=== PATIENT | female | born 1955 | race Caucasian/White ===

== ENCOUNTER 2022-05-12 14:50 | Inpatient (IN) | payer MEDICARE ==
[2022-05-12 20:05] VITALS: BMI 31.4
[2022-05-12] MEDS ORDERED: Ondansetron PF 4 MG/2 ML Vial IVP PRN (20:53)
[2022-05-12] MEDS ORDERED: Dextrose 5% in Water 1,000 ML IV PRN (20:59)
[2022-05-12] MEDS ORDERED: Dextrose 50% Abboject 50 ML SYRINGE SLOW IVP PRN (20:59)
[2022-05-12] MEDS ORDERED: Potassium Chloride 20 MEQ TAB PO SCH (21:00)
[2022-05-12 21:48] LABS: Troponin I 0.037 ng/mL (< 0.028)
[2022-05-12] MEDS: Heparin 5,000 UNITS/ML VIAL SC SCH (22:29)
[2022-05-12] MEDS: Acetaminophen 325 MG TAB PO PRN (22:29)
[2022-05-12] MEDS: Sodium Chloride 0.9% 1,000 ML IV SCH (22:30)
[2022-05-12] MEDS: HumaLOG 300 UNITS/3 ML VIAL SC PRN (22:36)
[2022-05-13 00:36] LABS: Troponin I 0.043 ng/mL (< 0.028)
[2022-05-13 05:37] LABS: #Lymphocytes 1.3 thou/uL (1.20-3.40); #Monocytes 1.4 thou/uL (0.11-0.59); #Neutrophils 13.4 thou/uL (1.40-6.50); %Basophils 0.1 % (0.0-1.0); %Lymphocytes 8.3 % (21.0-51.0); %Monocytes 8.9 % (0.0-10.0); %Neutrophils 82.7 % (42.0-75.0); Hemoglobin 10.4 g/dL (12.0-16.0); Mean Corpuscular HGB CONC 32.5 g/dL (32.0-36.0); Mean Corpuscular Hemoglobin 29.9 pg (27.0-31.0); Mean Platelet Volume 7.1 fL (7.4-10.4); Platelet Count 259 thou/uL (130-400); RBC Distribution Width 12.9 % (11.5-14.5); Red Blood Cell (RBC) Count 3.48 mill/uL (4.20-5.40); White Blood Cell (WBC) Count 16.2 thou/uL (4.8-10.8)
[2022-05-13 05:51] LABS: Hemoglobin A1c 8.3 % (4.0-6.0)
[2022-05-13 06:01] LABS: Anion Gap 16 mmol/L (10-20); BUN (Urea Nitrogen) 34 mg/dL (9.8-20.1); Calc. Creatinine Clearance 46 mL/min (70-130); Calcium 8.8 mg/dL (7.8-10.44); Carbon Dioxide 24 mmol/L (23-31); Cardiac Risk 4.5 (Less than 4.5); Chloride 99 mmol/L (98-107); Cholesterol 156 mg/dl (< 200 Desired); Estimated GFR 41; Glucose 286 mg/dL (80-115); HDL Cholesterol 35 mg/dL (>60 Neg Risk); LDL Cholesterol, Calculated 67 mg/dL; Magnesium 1.5 mg/dL (1.6-2.6); Potassium 3.2 mmol/L (3.5-5.1); Sodium 136 mmol/L (136-145); Triglycerides 272 mg/dL (Less than 150)
[2022-05-13] MEDS: HumaLOG 300 UNITS/3 ML VIAL SC PRN ×4 (06:35→21:23)
[2022-05-13] MEDS: Heparin 5,000 UNITS/ML VIAL SC SCH ×2 (08:59→21:23)
[2022-05-13] MEDS ORDERED: Potassium Chloride 20 MEQ TAB PO SCH (09:00)
[2022-05-13] MEDS ORDERED: Magnesium 2 GM/50 ML(in water) 2 GM in Premix Bag 1 BAG IVPB SCH (09:00)
[2022-05-13] MEDS: Aspirin 325 MG TAB PO SCH (10:27)
[2022-05-13] MEDS: Sodium Chloride 0.9% 1,000 ML IV SCH ×2 (10:28→23:54)
[2022-05-13] MEDS ORDERED: cefTRIAXone\\ROCEPHIN 1 GM in Sodium Chloride 0.9% 100 ML IVPB SCH (16:00)
[2022-05-13] MEDS: cefTRIAXone\\ROCEPHIN 2 GM in Sodium Chloride 0.9% 100 ML IVPB SCH (17:14)
[2022-05-13] MEDS ORDERED: Atorvastatin Calcium 40 MG TAB PO SCH (21:00)
[2022-05-13] MEDS: Insulin Glargine 30 UNITS/0.3 ML VIAL SC SCH (21:23)
[2022-05-13] MEDS: Rosuvastatin 20 MG TAB PO SCH (21:23)
[2022-05-13] MEDS: Acetaminophen 325 MG TAB PO PRN (23:51)
[2022-05-14 05:08] LABS: #Lymphocytes 2.2 thou/uL (1.20-3.40); #Monocytes 1.1 thou/uL (0.11-0.59); %Basophils 0.3 % (0.0-1.0); %Eosinophils 0.4 % (0.0-10.0); %Lymphocytes 20.9 % (21.0-51.0); %Monocytes 11.1 % (0.0-10.0); %Neutrophils 67.3 % (42.0-75.0); Hemoglobin 10.7 g/dL (12.0-16.0); Mean Corpuscular HGB CONC 33.9 g/dL (32.0-36.0); Mean Corpuscular Volume 91.5 fL (78.0-98.0); Mean Platelet Volume 7.3 fL (7.4-10.4); Platelet Count 234 thou/uL (130-400); RBC Distribution Width 12.8 % (11.5-14.5); Red Blood Cell (RBC) Count 3.46 mill/uL (4.20-5.40); White Blood Cell (WBC) Count 10.3 thou/uL (4.8-10.8)
[2022-05-14 05:30] LABS: Anion Gap 14 mmol/L (10-20); BUN (Urea Nitrogen) 29 mg/dL (9.8-20.1); Calc. Creatinine Clearance 54 mL/min (70-130); Calcium 8.2 mg/dL (7.8-10.44); Carbon Dioxide 21 mmol/L (23-31); Chloride 104 mmol/L (98-107); Estimated GFR 49; Glucose 206 mg/dL (80-115); Potassium 3.1 mmol/L (3.5-5.1); Sodium 136 mmol/L (136-145)
[2022-05-14] MEDS: Heparin 5,000 UNITS/ML VIAL SC SCH ×2 (09:45→21:29)
[2022-05-14] MEDS: Aspirin 325 MG TAB PO SCH (09:45)
[2022-05-14] MEDS: HumaLOG 300 UNITS/3 ML VIAL SC PRN ×3 (11:36→21:32)
[2022-05-14] MEDS: Sodium Chloride 0.9% 1,000 ML IV SCH ×2 (15:36→15:56)
[2022-05-14] MEDS: cefTRIAXone\\ROCEPHIN 2 GM in Sodium Chloride 0.9% 100 ML IVPB SCH (15:55)
[2022-05-14] MEDS: Insulin Glargine 30 UNITS/0.3 ML VIAL SC SCH (21:30)
[2022-05-14] MEDS: Rosuvastatin 20 MG TAB PO SCH (21:32)
[2022-05-14] MEDS: Acetaminophen 325 MG TAB PO PRN (21:32)
[2022-05-15 05:06] LABS: #Eosinphils 0.1 thou/uL (0.0-0.7); #Lymphocytes 2.5 thou/uL (1.20-3.40); #Monocytes 1.4 thou/uL (0.11-0.59); #Neutrophils 6.5 thou/uL (1.40-6.50); %Basophils 0.2 % (0.0-1.0); %Eosinophils 1.1 % (0.0-10.0); %Lymphocytes 23.5 % (21.0-51.0); %Monocytes 12.9 % (0.0-10.0); %Neutrophils 62.3 % (42.0-75.0); Hemoglobin 11.1 g/dL (12.0-16.0); Mean Corpuscular HGB CONC 34.8 g/dL (32.0-36.0); Mean Platelet Volume 7.4 fL (7.4-10.4); Platelet Count 244 thou/uL (130-400); RBC Distribution Width 12.6 % (11.5-14.5); Red Blood Cell (RBC) Count 3.48 mill/uL (4.20-5.40); White Blood Cell (WBC) Count 10.5 thou/uL (4.8-10.8)
[2022-05-15 05:20] LABS: Anion Gap 14 mmol/L (10-20); BUN (Urea Nitrogen) 22 mg/dL (9.8-20.1); Calc. Creatinine Clearance 66 mL/min (70-130); Calcium 8.2 mg/dL (7.8-10.44); Carbon Dioxide 22 mmol/L (23-31); Chloride 104 mmol/L (98-107); Estimated GFR 63; Glucose 190 mg/dL (80-115); Potassium 3.2 mmol/L (3.5-5.1); Sodium 137 mmol/L (136-145)
[2022-05-15] MEDS: Sodium Chloride 0.9% 1,000 ML IV SCH ×2 (06:10→20:44)
[2022-05-15] MEDS: HumaLOG 300 UNITS/3 ML VIAL SC PRN ×3 (06:13→16:23)
[2022-05-15] MEDS: Aspirin 325 MG TAB PO SCH (09:04)
[2022-05-15] MEDS: Heparin 5,000 UNITS/ML VIAL SC SCH ×2 (09:04→20:48)
[2022-05-15] MEDS: cefTRIAXone\\ROCEPHIN 2 GM in Sodium Chloride 0.9% 100 ML IVPB SCH (16:22)
[2022-05-15] MEDS ORDERED: Potassium Chloride 20 MEQ TAB PO SCH (20:15)
[2022-05-15] MEDS: Rosuvastatin 20 MG TAB PO SCH (20:46)
[2022-05-15] MEDS: Insulin Glargine 30 UNITS/0.3 ML VIAL SC SCH (20:54)
[2022-05-16] MEDS: HumaLOG 300 UNITS/3 ML VIAL SC PRN ×4 (06:18→21:00)
[2022-05-16 07:47] LABS: #Eosinphils 0.2 thou/uL (0.0-0.7); #Lymphocytes 2.3 thou/uL (1.20-3.40); %Basophils 0.2 % (0.0-1.0); %Eosinophils 2.1 % (0.0-10.0); %Lymphocytes 21.9 % (21.0-51.0); %Monocytes 9.2 % (0.0-10.0); %Neutrophils 66.5 % (42.0-75.0); Hemoglobin 9.8 g/dL (12.0-16.0); Mean Corpuscular HGB CONC 32.6 g/dL (32.0-36.0); Mean Corpuscular Hemoglobin 29.7 pg (27.0-31.0); Mean Corpuscular Volume 91.1 fL (78.0-98.0); Mean Platelet Volume 7.1 fL (7.4-10.4); Platelet Count 265 thou/uL (130-400); RBC Distribution Width 12.8 % (11.5-14.5); White Blood Cell (WBC) Count 10.5 thou/uL (4.8-10.8)
[2022-05-16 08:09] LABS: Anion Gap 9 mmol/L (10-20); BUN (Urea Nitrogen) 16 mg/dL (9.8-20.1); Calc. Creatinine Clearance 77 mL/min (70-130); Calcium 8.1 mg/dL (7.8-10.44); Carbon Dioxide 24 mmol/L (23-31); Chloride 108 mmol/L (98-107); Estimated GFR 75; Glucose 164 mg/dL (80-115); Potassium 3.2 mmol/L (3.5-5.1); Sodium 138 mmol/L (136-145)
[2022-05-16] MEDS: Sodium Chloride 0.9% 1,000 ML IV SCH (08:16)
[2022-05-16] MEDS: Heparin 5,000 UNITS/ML VIAL SC SCH ×2 (08:17→21:01)
[2022-05-16] MEDS: Aspirin 325 MG TAB PO SCH (08:17)
[2022-05-16] MEDS: cefTRIAXone\\ROCEPHIN 2 GM in Sodium Chloride 0.9% 100 ML IVPB SCH (16:33)
[2022-05-16] MEDS ORDERED: Saccharomyces boulardii 250 MG CAP PO SCH (17:15)
[2022-05-16] MEDS: Rosuvastatin 20 MG TAB PO SCH (20:59)
[2022-05-16] MEDS: Insulin Glargine 30 UNITS/0.3 ML VIAL SC SCH (20:59)
[2022-05-17] MEDS: Acetaminophen 325 MG TAB PO PRN (00:21)
[2022-05-17] MEDS: HumaLOG 300 UNITS/3 ML VIAL SC PRN ×3 (05:53→16:40)
[2022-05-17 05:59] LABS: Anion Gap 12 mmol/L (10-20); BUN (Urea Nitrogen) 13 mg/dL (9.8-20.1); Calc. Creatinine Clearance 72 mL/min (70-130); Calcium 8.2 mg/dL (7.8-10.44); Carbon Dioxide 23 mmol/L (23-31); Chloride 106 mmol/L (98-107); Estimated GFR 70; Glucose 231 mg/dL (80-115); Potassium 3.1 mmol/L (3.5-5.1); Sodium 138 mmol/L (136-145)
[2022-05-17] MEDS: Potassium Chloride 20 MEQ TAB PO SCH ×2 (09:15→16:39)
[2022-05-17] MEDS: Heparin 5,000 UNITS/ML VIAL SC SCH ×2 (09:16→21:32)
[2022-05-17] MEDS: Aspirin 325 MG TAB PO SCH (09:16)
[2022-05-17] MEDS: Saccharomyces boulardii 250 MG CAP PO SCH (09:16)
[2022-05-17] MEDS: metFORMIN 500 MG TAB PO SCH (16:39)
[2022-05-17] MEDS: cefTRIAXone\\ROCEPHIN 2 GM in Sodium Chloride 0.9% 100 ML IVPB SCH (16:39)
[2022-05-17] MEDS ORDERED: Mirtazapine 15 MG TAB PO SCH (21:00)
[2022-05-17] MEDS ORDERED: Simvastatin 5 MG TAB PO SCH (21:00)
[2022-05-17] MEDS: Insulin Glargine 30 UNITS/0.3 ML VIAL SC SCH (21:32)
[2022-05-17] MEDS: Rosuvastatin 20 MG TAB PO SCH (21:34)
[2022-05-18 05:32] LABS: Anion Gap 12 mmol/L (10-20); BUN (Urea Nitrogen) 12 mg/dL (9.8-20.1); Calc. Creatinine Clearance 65 mL/min (70-130); Carbon Dioxide 27 mmol/L (23-31); Chloride 105 mmol/L (98-107); Estimated GFR 62; Glucose 189 mg/dL (80-115); Potassium 3.8 mmol/L (3.5-5.1); Sodium 140 mmol/L (136-145)
[2022-05-18] MEDS: HumaLOG 300 UNITS/3 ML VIAL SC PRN (05:53)
[2022-05-18 08:24] VITALS: BP 190/67; TEMP 97.8
[2022-05-18] MEDS ORDERED: Lisinopril 20 MG TAB PO SCH (09:00)
[2022-05-18] MEDS ORDERED: Amlodipine 5 mg/Benazepril 20 mg CAP PO SCH (09:00)
[2022-05-18] MEDS ORDERED: Alogliptin 6.25 MG TAB PO SCH (09:00)
[2022-05-18] MEDS ORDERED: Amlodipine 5 MG TAB PO SCH (09:00)
[2022-05-18] MEDS: Aspirin 325 MG TAB PO SCH (09:11)
[2022-05-18] MEDS: Potassium Chloride 20 MEQ TAB PO SCH (09:12)
[2022-05-18] MEDS: Heparin 5,000 UNITS/ML VIAL SC SCH (09:13)
[2022-05-18] MEDS: metFORMIN 500 MG TAB PO SCH (09:13)
[2022-05-18] MEDS: Saccharomyces boulardii 250 MG CAP PO SCH (09:13)
== END 2022-05-18 13:02 | disposition swing bed (61) | DRG 871 ==
LOC: NEURO 14:50 → OBSVTOIN 20:53 → MSONC 05-13 18:43
PROVIDERS: ADMIT Internal Medicine; ATTEND Internal Medicine
DX: A41.81 Sepsis due to Enterococcus (principal); I21.A1 Myocardial infarction type 2; I69.351 Hemiplegia and hemiparesis following cerebral infarction affecting right dominant side; E87.2 Acidosis; N17.9 Acute kidney failure, unspecified; N30.00 Acute cystitis without hematuria; Z20.822 Contact with and (suspected) exposure to COVID-19; I10 Essential (primary) hypertension; E78.5 Hyperlipidemia, unspecified; E11.9 Type 2 diabetes mellitus without complications; E87.6 Hypokalemia; E83.42 Hypomagnesemia; Z79.4 Long term (current) use of insulin; Z90.09 Acquired absence of other part of head and neck; Z79.899 Other long term (current) drug therapy
CPT/HCPCS: 36415; 36416; 70450; 74176; 80048; 80061; 83036; 83735; 85025; 97139; J0696; J1644; J1815; J3475; J3490; J7050; U0003; U0005